=== PATIENT | male | born 1985 | race Caucasian/White ===

== ENCOUNTER 2016-11-24 11:26 | Emergency (ER) | payer MEDICARE, OTHER ==
[2016-11-24] MEDS ORDERED: ACETAMINOPHEN 500 MG TABLET PO ONE (11:41)
[2016-11-24] MEDS ORDERED: ALBUTEROL SULFATE 2.5 MG/3 ML VIAL.NEB IH ONE (11:57)
--- OUTSIDE RECORDS SUMMARY | 2016-11-24 12:10 | XMS REPORT | Continuity of Care Document ---
:1985 Author Organization [facility] ([facility]) Address [place] [address] Phone [phone] Care Team Providers Name Role Phone Unavailable Primary Care Provider Unavailable Source Comments This disclosure is being made pursuant to the Care Everywhere program, applicable federal and state laws, and may not contain all informaitonavailable regarding this patient.[facility] ([facility]) Active Allergies and Adverse Reactions Not on File Current Medications Not on file Active Problems Not on file Social History Tobacco Use Types Packs/Day Years Used Date Never Assessed Plan of Care Health Maintenance Due Date Last Done Comments Hepatitis B Vaccine (1 of 3 - Primary Series) 1985 Tdap Vaccine 01/15/1995 Lipid Disorder Screening 01/15/2002 MMR Vaccine 01/15/2002 Td Vaccine 01/15/2002 Varicella Vaccine (1 of 2 - Adult - No Evidence of 01/15/2002 Immunity) Influenza Vaccine: Seasonal (#1) 04/18/2016 Results from Last 3 Months Not on file
--- OUTSIDE RECORDS SUMMARY | 2016-11-24 12:10 | XMS REPORT | Continuity of Care Document ---
:1985 Author Organization [facility] [place] [address] Care Team Providers Name Role Phone Unavailable Primary Care Provider Unavailable Source Comments This disclosure is being made pursuant to the [employer] program and maynot contain all information available regarding this patient.[facility] Active Allergies and Adverse Reactions Not on File Current Medications Be aware that medications may not be up to date as of this document. Alwaysverify current medications with the patient. Not on file Active Problems Not on file Social History Tobacco Use Types Packs/Day Years Used Date Never Assessed Plan of Care Health Maintenance Due Date Last Done Comments Retired-Pertussis Vaccine Adult 01/15/2003 Retired-Tetanus Vaccine Adult 01/15/2003 Retired-INFLUENZA VACCINE 05/19/2015 Results from Last 3 Months Not on file
[2016-11-24 12:15] LABS: Hematocrit 46.3 % (42.0-52.0); Hemoglobin 15.5 gm/dL (13.5-18.0); Mean Cell Volume 86.7 fl (78-100); Mean Corpuscular Hgb Conc 33.5 g/dl (32-36); Mean Platelet Volume 10.2 fl (6.0-9.5); Neutrophil # 3.9 K/mm3 (1.3-6.0); Neutrophil % 61.8 % (42-75.0); Platelet Count 255 K/mm3 (150-450); Red Blood Count 5.34 M/mm3 (4.7-6.0); Red Cell Distribution Width 12.9 % (11.5-14.0); White Blood Count 6.3 K/mm3 (4.0-10.5)
[2016-11-24] MEDS ORDERED: ALBUTEROL SULFATE 2.5 MG/0.5 ML VIAL.NEB IH ONE (12:15)
[2016-11-24 12:34] LABS: ALT 62 U/L (19-67); AST 20 U/L (0-48); Alkaline Phosphatase * 53 U/L (50-170); Anion Gap 17.8 mmol/L (6.8-13.8); BUN/Creatinine Ratio 13.3 (9.0-21.6); Bilirubin, Total 0.3 mg/dL (0.0-1.1); Blood Urea Nitrogen 15 mg/dL (6-23); Ca. Corrected For Albumin 8.8 mg/dL (8.4-10.2); Calcium * 9.1 mg/dL (7.9-10.9); Carbon Dioxide 23.2 mmol/L (24-32.6); Chloride 105 mmol/L (97-106); Glucose * 103 mg/dL (70-110); Sodium 142 mmol/L (132-142); Total Protein 7.8 gm/dL (6.2-8.2)
[2016-11-24] MEDS ORDERED: METHYLPREDNISOLONE SOD SUCC/PF 40 MG/ML VIAL IM ONE (12:43)
[2016-11-24] MEDS ORDERED: METHYLPREDNISOLONE SOD SUCC/PF 40 MG/ML VIAL ONE (12:45)
[2016-11-24] MEDS ORDERED: KETOROLAC TROMETHAMINE 30 MG/ML VIAL IV ONE (12:54)
[2016-11-24] MEDS ORDERED: NORMAL SALINE 1,000 ML IV ONE (12:54)
--- NOTE | 2016-11-24 12:59 | ERNOTE ---
Date of Service: 11/24/16 Time Seen by Provider: 11/24/16 12:00 Stated Complaint: HASN'T FELT RIGHT SINCE TAKING NYQUIL Presenting Symptoms:: fever Exam Limitations: no limitations Allergies/Adverse Reactions: Allergies No Known Allergies Allergy (Verified 11/24/16 11:40) Home Medications: HOME MEDICATIONS Multivitamin [Multi Vitamin Daily] 1 each PO DAILY 07/02/13 [Last Taken Unknown] Albuterol Sulfate [Ventolin HFA] 2 puff IH Q6H PRN #1 inhaler 11/24/16 [Last Taken Unknown] Azithromycin [Zithromax] 250 mg PO DAILY #4 tablet 11/24/16 [Last Taken Unknown] Prednisone [Deltasone] 60 mg PO DAILY #3 tablet 11/24/16 [Last Taken Unknown] - History of Present Ilness Narrative: 31-year-old male presenting to the emergency room this morning complaining of not feeling right after taking NyQuil and tylenol. Patient states he has been sick since last week continued to complain of shortness of breath and fever. patient also states he has not been using his cpap machine for the last month due to insurance issues. Date (Duration): 11/24/16 Timing: getting worse Severity: moderate Frequency/Possible Cause: Reports: other - reports being sick for over a week Modifying Factors - Improves: Reports: nothing Modifying Factors - Worsens: Reports: activity, lying down Associated Symptoms: Reports: shortness of breath, wheezing, fever/chills. Denies: chest pain/soreness, nasal congestion, dizziness, headache Review of Systems - Review of Systems Constitutional: Present: See HPI, recent illness, fever, chills, malaise EYE: Present: no symptoms reported Respiratory: Present: See HPI, shortness of breath, orthopnea, wheezing Cardiology: Present: other - tachy Gastrointestinal/Abdominal: Present: no symptoms reported. Absent: nausea, vomiting, diarrhea, constipation, eating less, drinking less Genitourinary: Present: no symptoms reported Musculoskeletal: Present: no symptoms reported Skin: Present: no symptoms reported Neurological: Present: no symptoms reported. Absent: headache Endocrine: Present: no symptoms reported Hematologic/Lymphatic: Present: no symptoms reported Psych: Present: no symptoms reported - Patient's Past Medical History Patient History - Medical: Obesity Patient History - Cardiac/Respiratory: CPAP/BiPAP Home Use - has not used it in the last month, Sleep Apnea Patient History - Surgical Procedures: T & A - Family History Mother Family History - Medical: Diabetes Type 2 Family History - Cardiac/Respiratory: Hypertension Father Family History - Medical: Diabetes Type 2 Family History - Cardiac/Respiratory: Hypertension - Social History Living Situations: home Smoking Status: Current every day smoker Have you smoked in the past 12 months: Yes Do you dip or chew tobacco: Yes Alcohol Use: occasionally Drug Use: none Physical Exam - Physical Exam General Appearance: Present: mild distress Eye Exam: Normal inspection: bilateral Ears, Nose, Throat: Present: normal ENT inspection Neck: Present: normal inspection Respiratory: Present: expiration (prolonged), rales, wheezing. Absent: chest tenderness, stridor Cardiovascular/Chest: Present: no murmur, normal peripheral pulses, tachycardia. Absent: JVD Gastrointestinal/Abdominal: Present: normal bowel sounds Back Exam: Present: normal inspection Extremity Exam: Present: normal inspection, non-tender, no edema Neurological Exam: Present: oriented, normal mood/affect, no motor/sensory deficits ED Progress - Results and Orders Results and Orders: tylenol level is not elevated. - Vital Signs Patient's Vital Signs:: I have reviewed the patient's vital signs. Vital Signs: Vital Signs 11/24/16 11:31 Temperature 38.5 C H Pulse Rate 119 H Respiratory 20 Rate Blood Pressure 148/89 O2 Sat by Pulse 98 Oximetry - X-Ray X-Ray #1 X-Ray: chest Interpretation: Reviewed by me X-ray Comments: Findings: The lungs demonstrate no focal consolidation or acute abnormality. There is a nodule projecting in the left mid upper lung felt to represent a calcified granuloma. This is relatively well-circumscribed. If concern persists consider nonemergent outpatient chest CT. There is no pleural effusion or pneumothorax. Cardiac silhouette and pulmonary vasculature are normal. The osseous structures are within normal limits for age. IMPRESSION: No acute cardiopulmonary process detected Electronically signed by Ian Mcbride M.D.. - Progress/Reassessment Chief Complaint: Upper Respiratory Symptoms Progress:: Improved Departure - Departure Clinical Impression: Viral upper respiratory illness Disposition: Home Follow Up Needed Condition: Stable Instructions: Viral Respiratory Infection, [id number] Additional Instructions: Take medications as prescribed. Follow-up with your primary care physician within the next 3 days. Return to emergency rooms of shortness of breath, fever is not controlled with medication or condition worsens. Do not take Tylenol or any medication with acetaminophen for the next 3 days. You make take Motrin over the counter as directed for fever and pain. Referrals: Willy Carlisle MD [Primary Care Provider] - Prescriptions: Albuterol Sulfate [Ventolin HFA] 2 puff IH Q6H PRN #1 inhaler PRN Reason: Shortness Of Breath Azithromycin [Zithromax] 250 mg PO DAILY #4 tablet Prednisone [Deltasone] 60 mg PO DAILY #3 tablet
[2016-11-24] MEDS ORDERED: KETOROLAC TROMETHAMINE 30 MG/ML VIAL ONE (13:14)
[2016-11-24 14:37] VITALS: BP 121/63
[2016-11-24] MEDS ORDERED: AZITHROMYCIN 250 MG TABLET PO ONE (14:51)
[2016-11-24] MEDS ORDERED: AZITHROMYCIN 250 MG TABLET ONE (14:55)
== END 2016-11-24 15:17 | disposition home or self-care (01) ==
LOC: ER 11:26
DX: J06.9 Acute upper respiratory infection, unspecified (principal); Z72.0 Tobacco use
CPT/HCPCS: 36415; 71020; 80053; 85025; 87081; 87400; 87430; 94760; 96372; 96374; 99284; G0480

== ENCOUNTER 2017-01-10 08:47 | Emergency (ER) | payer OTHER ==
--- NOTE | 2017-01-10 09:53 | ERNOTE ---
Lower Extremity HPI - Narrative Date of Service: 01/10/17 - General Lower Extremities Pain: knee: right Time Seen by Provider: 01/10/17 09:28 Source: patient Exam Limitations: no limitations - Immun/Allergies/Home Medications Allergies/Adverse Reactions: Allergies Allergy/AdvReac Type Severity Reaction Status Date / Time No Known Allergies Allergy Verified 01/10/17 08:54 Home Medications: HOME MEDICATIONS Multivitamin [Multi Vitamin Daily] 1 each PO DAILY 07/02/13 [Last Taken Unknown] Albuterol Sulfate [Ventolin HFA] 2 puff IH Q6H PRN #1 inhaler 11/24/16 [Last Taken Unknown] predniSONE [Deltasone] 60 mg PO DAILY #3 tablet 11/24/16 [Last Taken Unknown] Omeprazole Magnesium [Prilosec Otc] 20 mg PO DAILY 01/10/17 [Last Taken Unknown] - History of Present Illness Narrative: Patient presents to the ED for rijury to tight knee. He relates that heasterday he injured his right knee. It seemed to give out on him. He sewms to describe a patella dislocation that resolved with straightening his knee but it has continued to hurt so he came in to be seen. No other injuries. Denies other injuries. No N/T/W. He states he has had long-term problems with his knee. No ankle ort hip pain. Pain moderate, worse with movement. No fever or redness. Occurred: yesterday Method of Injury: Reports: twisted Loss of Consciousness: Reports: no loss of consciousness Modifying Factors - (Improves): Reports: rest Modifying Factors - (Worsens): Reports: movement Associated Symptoms: Denies: unable to bear weight, dizzy/light headedness, weakness, sensory loss Other Injuries: Reports: none Subsequent Symptoms: Denies: sensory loss, numbness, motor loss Prior Treament: Denies: recently seen Review of Systems - Review of Systems Constitutional: Absent: fever Respiratory: Absent: shortness of breath Cardiology: Absent: chest pain Gastrointestinal/Abdominal: Absent: abdominal pain Musculoskeletal: Present: See HPI Skin: Present: other - no laceration - Patient's Past Medical History Patient History - Medical: Obesity Patient History - Cardiac/Respiratory: CPAP/BiPAP Home Use, Sleep Apnea Patient History - Surgical Procedures: T & A - Family History Mother Family History - Medical: Diabetes Type 2 Family History - Cardiac/Respiratory: Hypertension Father Family History - Medical: Diabetes Type 2 Family History - Cardiac/Respiratory: Hypertension - Social History Living Situations: home Alcohol Use: occasionally Drug Use: none Physical Exam - Physical Exam General Appearance: Present: alert, no apparent distress Eye Exam: Normal inspection: bilateral Ears, Nose, Throat: Present: normal ENT inspection Neck: Present: normal inspection Respiratory: Present: no respiratory distress Cardiovascular/Chest: Present: regular rate, rhythm, normal peripheral pulses Gastrointestinal/Abdominal: Present: nontender Extremity Exam: Present: other - Right hip, ankle and foot non-tender. Foot warm and well perfused. No clear knee effusion noted. Mild medial joint-line tenderness and anterior knee tenderness noted. No patellar tendon dislocation or rupture noted. No gross knee instability. No suggestion of septic arthritis. Skin Exam: Present: normal color, warm/dry, other - no erythema ED Progress - Date and Time Seen: Date and Time: 01/10/17 09:49 - Vital Signs Patient's Vital Signs:: I have reviewed the patient's vital signs. Vital Signs: Vital Signs 01/10/17 08:50 Temperature 36.5 C Pulse Rate 77 Respiratory 12 Rate Blood Pressure 113/77 O2 Sat by Pulse 97 Oximetry - X-Ray X-Ray #1 X-Ray: knee Interpretation: Reviewed by me X-ray Comments: I reviewed x-ray result. - Progress/Reassessment Chief Complaint: Lower Extremity Pain/ Injury Progress Note-Subjective: 01/10/17 09:50 i disucssed the case with Dr Bonilla via phone. Knee immobilizer and office f/ u. Nursing arranged office follow-up. No life or limb threat noted. I discussed warning signs and reasons to return as well as the need for close f/u. Departure Clinical Impression: Knee injury, Musculoskeletal pain of extremity - Departure Disposition: Home self-care Condition: Stable Instructions: Knee Pain Additional Instructions: Knee Immobilizer. Follow-up with Ortho as directed, nurses have scheduled an appointment for you. Rest. Ice. Ibuprofen. Return for fever, increased pain or if your condition worsens or changes in any way. Referrals: Willy Carlisle MD [Primary Care Provider] -
[2017-01-10 10:04] VITALS: BP 120/72
--- OUTSIDE RECORDS SUMMARY | 2017-01-10 10:08 | XMS REPORT | Continuity of Care Document ---
:1985 Author Organization [facility] [place] [address] Care Team Providers Name Role Phone Unavailable Primary Care Provider Unavailable Source Comments This disclosure is being made pursuant to the [employer] program and maynot contain all information available regarding this patient.[facility] Active Allergies and Adverse Reactions Not on [...]
--- OUTSIDE RECORDS SUMMARY | 2017-01-10 10:08 | XMS REPORT | Continuity of Care Document ---
:1985 Author Organization [facility] ([facility]) Address [place] [address] Phone [phone] Care Team Providers Name Role Phone Unavailable Primary Care Provider Unavailable Source Comments This disclosure is being made pursuant to the Care Everywhere program, applicable federal and state laws, and may not contain all informaitonavailable regarding this patient.[facility] ([facility]) Active Allergies and Adverse Reactions Not [...]
== END 2017-01-10 10:08 | disposition home or self-care (01) ==
LOC: ER 08:47
PROC: 2W3LX1Z Immobilization of Right Lower Extremity using Splint (ICD-10-PCS; principal; 2017-01-10)
DX: M25.561 Pain in right knee (principal); S89.91XA Unspecified injury of right lower leg, initial encounter; X58.XXXA Exposure to other specified factors, initial encounter; Y93.9 Activity, unspecified; Y92.9 Unspecified place or not applicable